=== PATIENT | male | born 1955 | race Caucasian/White ===

== ENCOUNTER 2024-07-16 06:21 | Day surgery (SDC) | payer MEDICARE, SELFPAY | END 2024-07-16 10:59 | disposition home or self-care (01) | LOC: GI 06:21 | PROVIDERS: ATTENDING PHYSICIAN Internal Medicine Gastroenterology | DX: Z12.11 Encounter for screening for malignant neoplasm of colon (principal); K59.00 Constipation, unspecified; K64.8 Other hemorrhoids | CPT/HCPCS: G0121 ==

== ENCOUNTER → 2025-02-06 06:46 | Outpatient (REF) | payer MEDICARE, SELFPAY | LOC: RAD 06:46 | PROVIDERS: ATTENDING PHYSICIAN Family Medicine | DX: Z13.6 Encounter for screening for cardiovascular disorders (principal); Z87.891 Personal history of nicotine dependence | CPT/HCPCS: 76770 ==